=== PATIENT | male | born 1980 | race Caucasian/White ===

== ENCOUNTER 2021-04-15 23:17 | Emergency (ER) | payer BC, SELFPAY ==
--- NOTE | ~2021-04-15 | XR_ITS ---
EXAMINATION: XR chest 2V DATE: 04/15/2021 23:50 INDICATION: Chest pain, shortness of breath, COVID exposure TECHNIQUE: PA and lateral views of the chest are obtained. COMPARISON: None available FINDINGS: The lungs are free of acute opacities. There is no pleural effusion or pneumothorax. There appear to be large calcified right lower paratracheal and right hilar lymph nodes. A calcified nodule of the right upper lobe is consistent with old granulomatous disease. The heart size is normal. The visualized bones and soft tissues are unremarkable. IMPRESSION: 1. No acute cardiopulmonary abnormality. 2. Likely large calcified right lower paratracheal and right hilar lymph nodes consistent with granul omatous disease. Recommend comparison with any prior outside imaging and consider further evaluation with chest CT if unavailable. Reviewed, dictated and finalized at location A. IMPRESSION: 1. No acute cardiopulmonary abnormality. 2. Likely large calcified right lower paratracheal and right hilar lymph nodes consistent with granulomatous disease. Recommend comparison with any prior outs melonie imaging and consider further evaluation with chest CT if unavailable.
[2021-04-15 23:20] VITALS: BP 135/95; PULSE 87; RESP 16; TEMP 36.2; O2SAT 99
--- NOTE | 2021-04-15 23:24 | ECG_ITS ---
Measurements Intervals Tofte Rate: 83 P: 36 ME: 132 QRS: -2 QRSD: 85 T: 32 QT: 363 QTc: 428 Interpretive Statements SINUS RHYTHM NORMAL ECG Electronically Signed On 04-16-2021 6:20:02 CDT by Cabrera Sargent D.O.
[2021-04-15 23:41] LABS: Basophils Percent Auto 0.4 % (0.2-1.2); Eosinophils Percent Auto 0.8 % (0-4.4); Hematocrit 42.9 % (42.0-52.0); Immature Granulocyte Absolute 0.02 K/mm3 (0.00-0.031); Immature Granulocyte Percent A 0.4 % (0-0.5); Lymphocytes Absolute Auto 2.24 K/mm3 (0.9-3.2); Lymphocytes Percent Auto 45.3 % (18.3-44.2); Mean Corpuscular HGB Conc 32.6 g/dl (32-36); Mean Corpuscular Volume 91.9 fl (80-100); Mean Platelet Volume 9.1 fl (7.4-10.4); Monocytes Absolute Auto 0.6 K/mm3 (0.1-0.6); Monocytes Percent Auto 11.9 % (2.6-8.5); Neutrophils Percent Auto 41.2 % (45.5-73.1); Platelet Count Result 237 k/mm3 (150-375); Red Blood Count 4.67 M/mm3 (4.6-6.20); Red Cell Distribution Width 12.1 % (11.5-14.5)
[2021-04-15 23:45] LABS: Prothrombin Time 12.6 Seconds (11.1-14.7)
[2021-04-15 23:46] LABS: Partial Thromboplastin Time 30.3 SECONDS (22.3-36.8)
[2021-04-16 00:11] LABS: Anion Gap 13 mmol/L (8-16); Blood Urea Nitrogen 14 mg/dL (9-20); Calcium 9.1 mg/dL (8.4-10.2); Carbon Dioxide 25 mmol/L (22-30); Chloride 102 mmol/L (98-107); Estimated CRCL calculation 109 ml/min; Estimated Glomerular Filt Rate > 60; Glucose 110 mg/dL (65-110); Potassium 3.7 mmol/L (3.4-5.0); Sodium 140 mmol/L (137-145)
[2021-04-16 00:25] LABS: Troponin I < 0.012 ng/mL (0.000-0.034)
--- NOTE | 2021-04-16 01:00 | ED.CHESTPAIN ---
HPI - Chest Pain General Chief Complaint: Chest Pain Stated Complaint: chest pain, pressure, cough, SOB Time Seen by Provider: 04/16/21 00:59 History of Present Illness HPI narrative: pleuritic chest pain for the past couple of days. increasing in severity. Worse with coughing and deep breathing. Associated with mild JACKSON. No fever. He has known exposure to COVID-19. He has been vaccinated. Related Data Home Medications Medication Instructions Recorded Confirmed omeprazole 20 mg capsule,delayed 20 mg PO DAILY 10/21/20 release rizatriptan 10 mg tablet 10 mg PO ONCE 10/21/20 Allergies Allergy/AdvReac Type Severity Reaction Status Date / Time No Known Allergies Allergy Verified 10/21/20 14:50 Review of Systems Review of Systems: All systems reviewed & are unremarkable except as noted in HPI and below ENT: Denies sore throat Respiratory: Respiratory: Reports cough Gastrointestinal: Gastrointestinal: Denies abdominal pain Genitourinary: Genitourinary: Reports no additional male genitourinary complaints Musculoskeletal: Musculoskeletal: Reports myalgias Neurologic: Reports system reviewed and no additional complaints, except as documented [facility] Past Medical History Medical History Mild acid reflux Surgical History Surgical History History of appendectomy (~1986) History of vasectomy (~2018) Hx of LASIK (~2008) Social History Social History Smoking status: Never smoker Alcohol intake: current Substance use: never Exam Const: General: no acute distress and alert Orientation/consciousness: patient oriented x3 HENMT: Head: normal to inspection Neck: Neck: normal visual inspection and no lymphadenopathy Chest: Chest palpation & inspection: no tenderness Resp: Effort & Inspection: normal respiratory effort Auscultation: clear to auscultation bilaterally, crackles, no rhonchi and no wheezes Cardio: Jugular venous distension: no JVD Rate: regular rate Rhythm: regular rhythm Heart sounds: no murmurs GI: Inspection: non-distended GI Palp: Yes Soft to palpation and No Tenderness to palpation present (GI) Skin: General skin exam: normal color Neuro: General: patient oriented x3 and moves all extremities Speech: normal speech Extrem: General: no edema Psych: Appearance: well kempt Affect: normal affect Course Vital Signs Vital signs: Vital Signs Temperature 36.2 C L 04/15/21 23:20 Pulse Rate 87 04/15/21 23:20 Respiratory Rate 16 04/15/21 23:20 Blood Pressure 135/95 H 04/15/21 23:20 Pulse Oximetry 99 04/15/21 23:20 Temperature 36.2 C L 04/15/21 23:20 Pulse Rate 81 04/16/21 02:29 Respiratory Rate 20 04/16/21 02:29 Blood Pressure 130/88 04/16/21 02:29 Pulse Oximetry 98 04/16/21 02:29 MDM - Chest Pain MDM Narrative Medical decision making narrative: Likely post vaccination COVID infection. Labs and x-ray negative. VS stable. Medical Records Data Attestation: I reviewed the patient's medical records. Lab Data Attestation: I reviewed the patient's lab results. Result diagrams: 04/15/21 23:29 04/15/21 23:29 Labs: Lab Results 04/15/21 04/15/21 04/15/21 Range/Units 23:29 23:29 23:29 WBC 5.0 (4.5-10.0) K/mm3 RBC 4.67 (4.6-6.20) M/mm3 Hgb 14.0 (14.0-18.0) g/dL Hct 42.9 (42.0-52.0) % MCV 91.9 (80-100) fl MCH 30.0 (26-34) pg MCHC 32.6 (32-36) g/dl RDW 12.1 (11.5-14.5) % Plt Count 237 (150-375) k/mm3 MPV 9.1 (7.4-10.4) fl Immature Gran % (Auto) 0.4 (0-0.5) % Neut % (Auto) 41.2 L (45.5-73.1) % Lymph % (Auto) 45.3 H (18.3-44.2) % Faulkner % (Auto) 11.9 H (2.6-8.5) % Eos % (Auto) 0.8 (0-4.4) % Baso % (Auto) 0.4 (0.2-1.2) % Lymph # (Auto) 2.24 (0.9-3.2) K/mm3 M
[2021-04-16 02:29] VITALS: BP 130/88; PULSE 81; RESP 20; O2SAT 98
[2021-04-16 18:40] LABS: SARS-CoV-2 RNA PCR Positive
== END 2021-04-16 02:32 | disposition home or self-care (01) ==
PROVIDERS: Emergency Provider Emergency Medicine; PCP Internal Medicine
DX: U07.1 COVID-19 (principal); R07.89 Other chest pain; K21.9 Gastro-esophageal reflux disease without esophagitis; R91.8 Other nonspecific abnormal finding of lung field
CPT/HCPCS: 36415; 71046; 80048; 84484; 85025; 85610; 85730; 93005; 99284; C9803; U0003; U0005

== ENCOUNTER → 2022-06-29 07:56 | Outpatient (CLI) | payer BC, SELFPAY ==
--- NOTE | ~2022-06-29 | CT_ITS ---
EXAMINATION: CT chest abdomen pelvis w con DATE: 06/29/2022 08:31 INDICATION: Sarcoidosis TECHNIQUE: Transaxial computed tomographic images of the chest, abdomen, and pelvis were obtained aft er the administration of 100 cc of Omnipaque 350 intravenous contrast. The dose-length product (DLP) was 1353.67 mGy-cm. Automated exposure control and iterative reconstruction technique were employed. COMPARISON: Chest radiograph dated 04/15/2021 FINDINGS: CHEST CT: There are minimal airspace opacities of the right upper lobe. There are calcified nodules in the righ t upper lobe. There is a 5.9 x 4.4 cm calcified right paratracheal mass. No pleural effusion or pneum othorax. The heart size is normal. ABDOMEN/PELVIS CT: The liver is diffusely low in attenuation when compared with the spleen, consistent with hepatic stea tosis. Punctate calcifications in the liver and spleen likely represent healed granulomatous disease. The pancreas, gallbladder, and adrenal glands are normal. 2.4 cm cyst of the left kidney. The right kidney is unremarkable. No pathologically enlarged abdominal or pelvic lymph nodes are identified. Th ere is no free intraperitoneal gas or evidence of bowel obstruction. Colonic diverticulosis is presen t without evidence of diverticulitis. IMPRESSION: 1. Calcified right paratracheal mass such as sarcoidosis given the clinical history, or other granulo matous disease, or less likely calcified neoplasm. 2. Minimal airspace opacities of the right upper lobe, consistent with pneumonia. Reviewed, dictated and finalized at location A. IMPRESSION: 1. Calcified right paratracheal mass such as sarcoidosis given the clinical his tory, or other granulomatous disease, or less likely calcified neoplasm. 2. Minimal airspace opacities of the right upper lobe, consistent with pneumoni a.
== END ==
PROVIDERS: PCP Internal Medicine; Visit Provider Internal Medicine
DX: D86.9 Sarcoidosis, unspecified (principal); N28.1 Cyst of kidney, acquired; K57.30 Diverticulosis of large intestine without perforation or abscess without bleeding
CPT/HCPCS: 71260; 74177; Q9967

== ENCOUNTER 2022-07-21 15:56 | Outpatient (CLI) | payer BC, SELFPAY ==
[2022-07-24 13:56] LABS: NIL 0.02 IU/mL; Quantiferon TB Plus, 1T NEGATIVE (NEGATIVE); TB1-NIL 0.01 IU/mL
== END 2022-07-21 15:57 | disposition home or self-care (01) ==
LOC: ANHLAB 15:57
PROVIDERS: PCP Internal Medicine; Visit Provider Internal Medicine Pulmonary Disease
DX: I89.8 Other specified noninfective disorders of lymphatic vessels and lymph nodes (principal)
CPT/HCPCS: 36415; 86480; 86698

== ENCOUNTER 2023-09-03 06:33 | Outpatient (CLI) | payer OTHER, SELFPAY ==
--- NOTE | ~2023-09-03 | CT_ITS ---
CT Scan of the Chest without Contrast: Clinical Indication: Calcified lymph nodes Technique: Contiguous sections were acquired throughout the chest without intravenous contrast. Dose reduction technique was used on this scan by utilizing automated exposure control and iterative recon struction technique. The dose-length product (DLP) was 397.27 mGy-cm. COMPARISON: 06/29/2022 Findings: Stable large, densely calcified tiesha mass along the right paratracheal stripe is present. No other t horacic lymphadenopathy seen. No axillary lymphadenopathy. The mediastinal soft tissues appear normal . There is no evidence of pleural or pericardial effusion. The lungs are clear, aside from calcified right upper lobe granulomas. Images through the upper abdomen reveal calcified splenic granulomas. Probable diffuse fatty infiltra tion of liver. Impression: Evidence of prior granulomatous disease, with dominant large densely calcified tiesha mass along right paratracheal stripe. Findings are stable from prior exam. Reviewed, dictated and finalized at [facility]. R ENGINEER Impression: Evidence of prior granulomatous disease, with dominant large densely calcified tiesha mass along right paratracheal stripe. Findings are stable from prior exam .
== END 2023-09-03 06:34 | disposition home or self-care (01) ==
LOC: ANHIMG 06:35
PROVIDERS: PCP Internal Medicine; Visit Provider Internal Medicine Pulmonary Disease
DX: I89.8 Other specified noninfective disorders of lymphatic vessels and lymph nodes (principal)
CPT/HCPCS: 71250

== ENCOUNTER 2023-12-10 00:29 | Day surgery (SDC) | payer OTHER, SELFPAY ==
[2023-12-02 10:10] VITALS: BMI 25.7
--- NOTE | 2023-12-08 10:08 | SUR.PREOP ---
Patient called regarding upcoming procedure. Voicemail left regarding appointment times.
[2023-12-10 09:09] VITALS: BP 112/77; PULSE 76; RESP 16; TEMP 35.6; O2SAT 100; BMI 26.2
[2023-12-10] MEDS: LACTATED RINGERS 1,000 ML 150 ML IV CONT (09:26)
--- NOTE | 2023-12-10 09:52 | PM.HPGS ---
History of Present Illness History of Present Illness Consent: Risks, benefits, and alternatives have been discussed and questions answered. Patient agrees to proceed with procedure. Chief complaint: GERD,Neoplasm screening,chest pain Narrative: Pillo Connell is a 43 year old male with gerd controlled with omeprazole taking for years but had episode few weeks ago of chest pain, now resolved. Had egd about 7 years ago, never had colonoscopy Review of Systems Review of Systems: All systems reviewed & are unremarkable except as noted in HPI and below PMFSH Past Medical History Medical History (Updated 12/10/23 @ 09:53 by Michael Schrader MD) Anxiety Colon cancer screening GERD (gastroesophageal reflux disease) Mild acid reflux RUQ pain Surgical History Surgical History History of appendectomy (~1986) History of vasectomy (~2018) Hx of LASIK (~2008) Social History Social History Smoking status: Never smoker Alcohol intake: current Drinks per week: 6 Substance use: never Living arrangements: with family Spiritual care concerns: No Meds Home Medications and Allergies Home Medications Medication Instructions Recorded Confirmed Type omeprazole 20 mg capsule,delayed 20 mg PO DAILY 10/21/20 12/10/23 History release rizatriptan 10 mg tablet 10 mg PO .prn 07/21/22 12/10/23 History Allergies Allergy/AdvReac Type Severity Reaction Status Date / Time No Known Allergies Allergy Verified 12/10/23 09:16 Vital Signs Vital Signs - 24 hr 12/10/23 09:09 Temperature 96.1 F L Pulse Rate 76 Respiratory Rate 16 Blood Pressure 112/77 Pulse Oximetry 100 Oxygen Delivery Room Air Exam Const: General: comfortable and no acute distress HENMT: Face/Nose/Sinus: Normal nares present Eyes: General: appearance normal, both eyes and all related structures Neck: Neck: no JVD Resp: Auscultation: clear to auscultation bilaterally Cardio: Rate: regular rate Rhythm: regular rhythm GI: Inspection: non-distended GI Palp: Yes Soft to palpation Skin: General skin exam: normal color Neuro: General: gait normal Speech: normal speech Extrem: General: normal to inspection Psych: Mental Status: mental status grossly normal Assessment and Plan Assessment and plan (1) GERD (gastroesophageal reflux disease): Code(s): K21.9 - Gastro-esophageal reflux disease without esophagitis Status: Acute Assessment and Plan: egd with bx (2) Colon cancer screening: Code(s): Z12.11 - Encounter for screening for malignant neoplasm of colon Status: Acute Assessment and Plan: colonoscopy
--- NOTE | 2023-12-10 10:05 | SUR.OPER ---
EGD end 1003 COLONOSCOPY START 1008
[2023-12-10 10:20] VITALS: BP 100/65; PULSE 58; RESP 14; O2SAT 98
[2023-12-10 10:30] VITALS: BP 104/71; PULSE 69; RESP 20; O2SAT 100
[2023-12-10 10:40] VITALS: BP 115/55; PULSE 66; RESP 17; O2SAT 98
== END 2023-12-10 10:44 | disposition home or self-care (01) ==
PROVIDERS: PCP Internal Medicine; Visit Provider Internal Medicine Gastroenterology
PROC: 0DJ08ZZ Inspection of Upper Intestinal Tract, Via Natural or Artificial Opening Endoscopic (ICD-10-PCS; CPT 43235; principal; 2023-12-10 10:30)
DX: Z12.11 Encounter for screening for malignant neoplasm of colon (principal); K57.30 Diverticulosis of large intestine without perforation or abscess without bleeding; K63.5 Polyp of colon; K64.8 Other hemorrhoids; K44.9 Diaphragmatic hernia without obstruction or gangrene; K21.9 Gastro-esophageal reflux disease without esophagitis
CPT/HCPCS: 45385; 43239; 88305; J2704; J7120

== ENCOUNTER 2024-10-26 06:42 | Outpatient (CLI) | payer OTHER, SELFPAY ==
--- NOTE | ~2024-10-26 | CT_ITS ---
CT Scan of the Chest without Contrast: Clinical Indication: Localized swelling Technique: Contiguous sections were acquired throughout the chest without intravenous contrast. Dose reduction technique was used on this scan by utilizing automated exposure control and iterative recon struction technique. The dose-length product (DLP) was 329.72 mGy-cm. COMPARISON: 09/03/2023 Findings: Stable very large densely calcified right paratracheal lymph node. No other mediastinal mass or lymph adenopathy seen. No aortic aneurysm. No axillary lymphadenopathy. There is no evidence of pleural or pericardial effusion. Stable calcified right upper lobe granulomas. Images through the upper abdomen reveal diffuse hepatic steatosis. Impression: No acute abnormality. Stable evidence of prior granulomatous disease, including large densely calcified right paratracheal lymph node. Reviewed, dictated and finalized at [facility]. ING CHECKER Impression: No acute abnormality. Stable evidence of prior granulomatous disease, including large densely calcifi ed right paratracheal lymph node.
--- OUTSIDE RECORDS SUMMARY | 2024-10-26 06:45 | XMS_ITS | Clinical Summary ---
Author Organization [facility] [address] [facility] [place] [address] Care Team Providers Care Director Supplier Quality Name Role Phone Jarrett Soni MD Primary Care Provider Dm Coates MD Unavailable Dm Comer MD Unavailable [phone] Allergies No known active allergies Medications omeprazole (PriLOSEC) 20 mg capsule Take 1 capsule (20 mg total) by mouth daily 05/08/2022 Active rizatriptan (MAXALT) 10 mg tablet 01/08/2023 Active Active Problems Problem Noted Date Diagnosed Date Screen for colon cancer 07/30/2024 Overview (07/30/2024): reports had Colonoscopy this year 2023 at [facility], and told to have repeat in 5 years, requesting records Assessment & Plan (07/30/2024 10:02 PM FIELD CROP FARMWORKER): reports had Colonoscopy this year 2023 at [facility], and told to have repeat in 5 years, requesting records Vitamin D deficiency 07/30/2024 Assessment & Plan (07/30/2024 10:06 PM FIELD CROP FARMWORKER): - new diagnosis - noted on 07/13 lab test - start Vitamin D3 5000 international units daily available OTC Lab Results Component Value Date 25HYDROVITD 21 (L) 07/14/2024 Pre-diabetes 07/30/2024 Assessment & Plan (07/30/2024 10:07 PM FIELD CROP FARMWORKER): - new diagnosis - noted on lab work 07/13 with A1c of 5.8 - will need repeat measurement for confirmation in future visit - minimize sources of excess sugar containing drinks or sweet foods to start with Gastroesophageal reflux disease without esophagi tis 07/07/2024 Assessment & Plan (07/07/2024 10:11 AM CDT): - chronic condition, stable status - has been on PPI for 10+ years - Omeprazole 20 mg daily in mornings only - used to take TUMS before that - has not been on another medication - continue current management Anxiety 07/07/2024 Assessment & Plan (07/30/2024 10:00 PM FIELD CR[employer] FARMWORKER): - chronic, stable - reports onset was End of 2022, had anxiety for first time ever, without any reason , thinks anxiety is stemming from any discomfort coming through his chest, panic and thinks he may be having a heart attack - he is sure his lungs and heart is fine now as he has been evaluated for it - he was prescribed some antidepressants that he did not take - he saw a therapist x2 within a couple of weeks around xmas time, - Has not had bouts of it since then but If starting to have, fight through it Preventative health care 07/07/2024 Assessment & Plan (07/30/2024 10:06 PM FIELD CROP FARMWORKER): - New or chronic worsening conditions: vitamin D deficiency, pre-diabetes - Mental health: no significant psychiatric/mental health conditions affecting her day to day functioning - Dental health: Recommend regular dental care and cleaning. Discussed importance of regular tooth brushing, flossing, and dental visits. - Nutrition: Recommend moderation in sodium/caffeine intake, saturated fat and cholesterol, caloric balance, sufficient intake of fresh fruits, vegetables - Exercise: Recommend to exercise at least 30 minutes moderate to vigorous exercise most days of the week. 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 Encounters Date Type Department Care Team Description 09/18/2024 Telephone [facility] at [address] [place] [phone] Jarrett Soni MD 08/28/2024 7:15 PM FIELD [employer] FARMWORKER Office Visit [facility] at [address] [phone] Elva Cuellar NP Epididymitis, right (Primary Dx) 08/28/2024 7:10 PM FIELD [employer] FARMWORKER - 08/28/2024 11:59 PM FIELD CR[employer] FARMWORKER Hospital Encounter [address] [address] Epididymitis, right Discharge Disposition: Discharge to home or self care 07/31/2024 Telephone [facility] at [address] [place] [phone] Jarrett Soni MD Medical Records Request from Last 3 Months Immunizations Name Administration Dates Next Due Influenza, Unspecified 07/07/2024(Deferr ed: Patient Refused),07/07/2024(Deferred: Patient Refused) Pfizer SARS-CoV-2 Monovalent Vaccination (12+ Yrs) PURPLE 11/23/2020,11/22/2020,11/03/2020,2020 Tdap 08/29/2015 Surgical History Surgery Date Site/Laterality Comments APPENDECTOMY VASECTOMY LASIK Medical History Medical History Date Comments Migraine GERD (gastroesophageal reflux disease) Sarcoidosis Family History Medical History Relation Name Comments Hypertension Father Thyroid disease Father Hypertension Mother Kidney disease Mother Relation Name Status Comments Father Alive Mother Alive Social History Tobacco Use Types Packs/Day Years Used Date Smoking Tobacco: Never Smokeless Tobacco: Never Tobacco Cessation:Counseling Given: Yes AUDIT-C Answer Date Recorded Q1: How often do you have a drink containing alcohol? 4 or more times a week 07/07/2024 Q2: How many drinks containi ng alcohol do you have on a typical day when you are drinking? 1 or 2 Q3: How often do you have si x or more drinks on one occasion? Never 07/07/2024 PHQ-2 Answer Date Recorded PHQ-2 Total Score (If total score is 3 or more points, staff should administer the PHQ-9) 0 07/07/2024 Sex and Gender Information Value Date Recorded Sex Assigned at Not on file Legal Sex Male 12:22 PM CDT Gender Identity Not on file Sexual Orientation Not on file Obstetrics History Last Filed Vital Signs Vital Sign Reading Time Taken Comments Blood Pressure 116/68 08/28/2024 7:06 PM FIELD [employer] FARMWORKER Pulse 87 08/28/2024 7:06 PM FIELD [employer] FARMWORKER Temperature 36.7 C (98.1 F) 08/28/2024 7:06 PM FIELD CR[employer] FARMWORKER Respiratory Rate 16 08/28/2024 7:06 PM FIELD CROP FARMWORKER Oxygen Saturation 97% 08/28/2024 7:06 PM FIELD CROP FARMWORKER Inhaled Oxygen Concentration - - Weight 98.9 kg (218 lb) 08/28/2024 7:06 PM FIELD CR[employer] FARMWORKER Height 188 cm (6' 2.02 ) 07/07/2024 9:23 AM CDT Body Mass Index 27.98 07/07/2024 9:23 AM CDT Plan of Treatment Health Maintenance Due Date Last Done Comments Covid-19 Vaccine ( season) 2024 11/23/2020, 11/22/2020, 11/03/2020, Additional history exists Influenza Vaccine (#1) 2024 Depression Screening 07/07/2025 07/07/2024, 05/26/20 24 Regular Well Visit/Exam 18-64 07/07/2025 07/07/2024 DTaP/Tdap/Td Vaccine (2 - Td or Tdap) 08/29/2025 08/29/2015 Colon Cancer Screening-Colonoscopy 12/09/2033 12/10/2023 Hepatitis B Screening Completed 07/14/2024 Hepatitis C Screening Completed 07/14/2024 HPV Vaccines Aged Out No longer eligi ble based on patient's age to complete this topic Pneumococcal vaccine <65 Aged Out No longer eligible based on patient's age to complete this topic Procedures Procedure Name Priority Date/Time Associated Diagnosis Comments POCT URINALYSIS DIPSTICK Routine 08/28/2024 7:17 PM FIELD CROP FARMWORKER Epididymitis, right URINE CULTURE Routine 08/28/2024 7:10 PM FIELD [employer] FARMWORKER Epididymitis, right HEPATITIS C ANTIBODY Routine 07/14/2024 10:00 AM CDT Encounter for hepatitis C screening test for low risk patient COLONOSCOPY Routine 12/10/2023 from Last 3 Months or Most Recently Relevant to Health Maintenance Results * POCT urinalysis dipstick (08/28/2024 7:17 PM FIELD CROP FARMWORKER) Color, Urine, POC Yellow Clarity, ur, POC Clear Clear Glucose, ur, POC Negative Negative MG/DL Bilirubin, ur, POC Negative Negative, Small, Moderate, Large Ketones, ur, POC Negative Negative Specific [place], POC 1.020 1.003 - 1.030 Blood, ur, POC Negative Negative pH, ur, POC 5.5 5.0 - 8.0 Protein, ur, POC Negative Negative Urobilinogen, urine, POC 0.2 0.2 - 1.0 mg/dL Nitrite, ur, POC Negative Negative Leukocytes, ur, POC Negative Negative Lot Number [id number] Urine 08/28/2024 7:17 PM FIELD CROP FARMWORKER Elva Cuellar NP POINT OF CARE TEST ORDERABLES Final Result * Urine culture Urine, clean voided (08/28/2024 7:10 PM FIELD CROP FARMWORKER) Report Final Report: Less than 100,000 colonies/mL (clinically insignificant growth based on current clinical standards) Comment:Testing performed by : [facility], [address] [place]., [address] Organism (CLINICALLY INSIGNIFICANT GROWTH [facility] Urine, clean voided 08/28/2024 7:10 PM FIELD CROP FARMWORKER 08/29/2024 12:22 AM FIELD CROP FARMWORKER Narrative LUDWIG - 08/30/2024 3:57 AM FIELD CROP FARMWORKER Testing performed by [facility] ([phone]) Elva Cuellar NP LAB MICROBIOLOGY - GENERAL ORD ERABLES Final Result Performing Organization Address [facility] Co de Phone Number LUDWIG CARROLL [address] [place], [place] [id number] * Hepatitis C antibody Blood (07/14/2024 10:00 AM CDT) Hep C Ab Nonreactive Nonreactive Comment: Interpretive Data Nonreactive: Antibodies to HCV not detected. Does NOT exclude the possibility of recent exposure to HCV. Equivocal: Equivocal for HCV antibodies. Supplemental molecular testing will be automatically performed to determine infection status in accordance with current CDC screening recommendations. Reactive: Positive for HCV antibodies. This may represent current or past HCV infection. Supplemental molecular testing will be automatically performed to determine current infection status in accordance with current CDC screening recommendations. Interpretive data was last revised on 2019. Blood 07/14/2024 10:0 0 AM CDT 07/14/2024 4:03 PM CDT us Jarrett Soni MD LAB MICROBIOLOGY - GENE RAL ORDERABLES Final Result Performing Organization Address City/[facility]/ZIP Co de Phone Number LUDWIG CARROLL [address] [employer] [place], [place] [phone] * Colonoscopy (12/10/2023) Anatomical Region Laterality Modality Other us Generic External Data Provider ENDOSCOPY PROCEDU RES Final Result from Last 3 Months or Most Recently Relevant to Health Maintenance Insurance [employer] ACCESS CHOICE Member Subscriber Plan / Payer (Ef fective for All Dates) Name:[phone] Relation to Subscriber:Self Name:Hemanth Connellothy Hafsa Payer ID:[id number] (NAIC) Type:[employer] Address: [address] [place] [address] CIG[employer] OPEN ACCESS [facility] OPEN ACCESS Care Teams Director Supplier Quality Relationship Specialty Start Date End Date Jarrett Soni MD [address] [place] [address] [address] [place] [address] PCP - General Family Medicine 05/26/24 Dm Coates MD [id number] [place] [address] Referring Physician Thoracic Surgery 07/07/24 Dm Comer MD [address] [facility] [address] [place], [place] [id number] Consulting Physician Pulmonary Disease 07/30/24
--- OUTSIDE RECORDS SUMMARY | 2024-10-26 06:45 | XMS_ITS | Data Portability ---
Author Organization [place] [facility] [employer], Main Office Address [address] [place] [address] Assessment No assessment recorded. Plan of Treatment Reminders Order Date Submit Date Provider Last Modified By Organization Details Last Modified Time Details Appointments None recorded. Lab lipid panel, serum 2022 023 [email or web address] [facility], [address] [place], [address], 11:59:43 PSA, serum or plasma 2022 023 [email or web address] [facility], [address] [place], [address], 11:59:44 magnesium, serum or plasma 2022 023 [email or web address] [facility], [address] [place], [address], 11:59:43 vitamin B12, serum 2022 023 [id number] [facility], [address] [place], [address], 11:59:43 CBC w/ auto diff 2022 023 [id number] [facility], [address] [place], [address], 3 11:59:43 CMP, serum or plasma 2022 023 [id number] [facility], [address] [place], [address], 3 11:59:43 TYLER (angiotensi n-convertin g enzyme), serum [id number] [facility], [address] [place], [address], 11:59:42 TSH, serum or plasma [id number] [facility], [address] [place], [address], 11:59:44 T4, free, serum [address] [facility], [address] [place], [address], 11:59:44 Referral None recorded. Procedures None recorded. Surgeries None recorded. Imaging None recorded. Medication Orders escitalopra m 10 mg tablet 2022 023 [id number], [address], [place], [place], [id number], 16:30:18 Patient TargetsNo targets recorded. Patient Instructions Encounter Date Encounter Id Patient Instructions Last Modified By Organization Details Last Modified Time 06/29/2023 [id number] Follow-up sarcoidosis -GERD -is vertebral bowel syndrome all clinically stable. Will check blood work consisting of CBC, CMP, lipid, thyroid, PSA, magnesium, PSA and Tyler level. Continue on current Rx. Will set up for further evaluation of the sarcoid. Instructed to take the Imodium one tablet in the morning see if this helps if no attempt to try some Viberzi.Standard immunizations of RSV, COVID, influenza and shingles as recommended Portions of the record may have been created with voice recognition software. Occasional wrong-word or s ound-a-like substitutions may have occurred due to the inherent limitations of voice recognition software. Read the chart carefully and recognize, using context, where substitutions have occurred. [email or web address] Not available 06/29/2023 15:17:37 08/06/2023 [id number] Anxiety disorder -sarcoidosis. Will start on some escitalopram 10 mg once daily. Instructed the patient's Let us know in about a week to 10 days status see there is any improvement. Check back in four weeks Portions of the record may have been created with voice recognition software. Occasional wrong-word or s ound-a-like substitutions may have occurred due to the inherent limitations of voice recognition software. Read the chart carefully and recognize, using context, where substitutions have occurred. Keep Appt: Wed 01:30 PM Jerzy willett Not available 08/06/2023 16:30:13 Reason for Referral None Reported. Results Created Date Observation Date Name Description Value Unit Range Abnormal Flag Note LastModifiedBy Organization Detail LastModifiedTime 07/02/2007/03/2022 PSA, TOTAL PSA, total 0.85 NG/mL < or = 4.00 normal The total PSA value from this assay syste m is stand ardiz ed again st the WHO stand ian. The test resul t will be appro ximat luis 20% lower when dimitrios red to the equim olar- stand ardiz ed total PSA (Kerr man Coult er). Dimitrios rison of seria l PSA resul ts shoul d be inter prete d with this fact in mind. This test was perfo rmed using the QA on Requeste ns chemi lumin escen t metho d. Value s obtai gregg from diffe rent assay metho ds canno t be used inter joseph eably . PSA level s, regar dless of value , shoul d not be inter prete d as absol [place] evide nce of the prese nce or absen ce of disea se. Not Available [employer] [facility] [address] [place], [address], 07/03/2022 05:26:52 07/02/2007/03/2022 VITAM IN B12 vitamin B12 530 pg/mL 200-11 00 normal Not Available [employer] [facility] [address] [place], [address], 07/03/2022 05:26:51 07/02/20 22 07/03/2022 CBC (INCL UDES DIFF/ PLT) white blood cell count 5.8 thous and/u L 3.8-10 .8 normal Not Available [address], [address], 07/03/2022 05:26:50 07/02/20 22 07/03/2022 CBC (INCL UDES DIFF/ PLT) MCH 30.3 pg 27.0-3 3.0 normal Not Available [address], [address], 07/03/2022 05:26:50 07/02/20 22 07/03/2022 CBC (INCL UDES DIFF/ PLT) red blood cell count 4.72 toya on/uL 4.20-5 .80 normal Not Available [address], [address], 07/03/2022 05:26:50 07/02/20 22 07/03/2022 CBC (INCL UDES DIFF/ PLT) hemoglobin 14.3 g/dL 13.2-1 7.1 normal Not Available [address], [address], 07/03/2022 05:26:50 07/02/20 22 07/03/2022 CBC (INCL UDES DIFF/ PLT) hematocrit 43.2 % 38.5-5 0.0 normal Not Available [address], [address], 07/03/2022 05:26:50 07/02/20 22 07/03/2022 CBC (INCL UDES DIFF/ PLT) MCV 91.5 fL 80.0-1 00.0 normal Not Available [address], [address], 07/03/2022 05:26:50 07/02/20 22 07/03/2022 CBC (INCL UDES DIFF/ PLT) MCHC 33.1 g/dL 32.0-3 6.0 normal Not Available [address] [place], [address], 07/03/2022 05:26:50 07/02/20 22 07/03/2022 CBC (INCL UDES DIFF/ PLT) RDW 11.9 % 11.0-1 5.0 normal Not Available [address], [address], 07/03/2022 05:26:50 07/02/2007/03/2022 CBC (INCL UDES DIFF/ PLT) platelet count 260 thous and/u L 140-40 0 normal Not Available [address], [address], 07/03/2022 05:26:50 07/02/2007/03/2022 CBC (INCL UDES DIFF/ PLT) MPV 9.7 fL 7.5-12 .5 normal Not Available [address], [address], 07/03/2022 05:26:50 07/02/20 22 07/03/2022 CBC (INCL UDES DIFF/ PLT) absolute neutrophils 3439 cells /uL 1500-7 800 normal Not Available [address], [address], 07/03/2022 05:26:50 07/02/20 22 07/03/2022 CBC (INCL UDES DIFF/ PLT) absolute lymphocytes 1815 cells /uL 850-39 00 normal Not Available [address], [address], 07/03/2022 05:26:50 07/02/2007/03/2022 CBC (INCL UDES DIFF/ PLT) absolute monocytes 423 cells /uL 200-95 0 normal Not Available [address], [address], 07/03/2022 05:26:50 07/02/20 22 07/03/2022 CBC (INCL UDES DIFF/ PLT) absolute eosinophils 93 cells /uL 15-500 normal Not Available [address], [address], 07/03/2022 05:26:50 07/02/20 22 07/03/2022 CBC (INCL UDES DIFF/ PLT) absolute basophils 29 cells /uL 0-200 normal Not Available [address], [address], 07/03/2022 05:26:50 07/02/20 22 07/03/2022 CBC (INCL UDES DIFF/ PLT) neutrophils 59.3 % normal Not Available [address], [address], 07/03/2022 05:26:50 07/02/20 22 07/03/2022 CBC (INCL UDES DIFF/ PLT) lymphocytes 31.3 % normal Not Available [address], [address], 07/03/2022 05:26:50 07/02/20 22 07/03/2022 CBC (INCL UDES DIFF/ PLT) monocytes 7.3 % normal Not Available [address], [address], 07/03/2022 05:26:50 07/02/20 22 07/03/2022 CBC (INCL UDES DIFF/ PLT) eosinophils 1.6 % normal Not Available [address], [address], 07/03/2022 05:26:50 07/02/20 22 07/03/2022 CBC (INCL UDES DIFF/ PLT) basophils 0.5 % normal Not Available [address], [address], 07/03/2022 05:26:50 07/02/20 22 07/03/2022 COMPR EHENS PACO METAB OLIC PANEL urea nitrogen (BUN) 21 mg/dL 7-25 normal Not Available [address] [place], [address], 07/03/2022 05:26:50 07/02/20 22 07/03/2022 COMPR EHENS PACO METAB OLIC PANEL glucose 98 mg/dL 65-99 normal Fasti ng refer ence inter joel Not Available [address] [address] [place], [address], 07/03/2022 05:26:50 07/02/20 22 07/03/2022 COMPR EHENS PACO METAB OLIC PANEL creatinine 0.93 mg/dL 0.60-1 .29 normal Not Available [address] [place], [address], 07/03/2022 05:26:50 07/02/20 22 07/03/2022 COMPR EHENS PACO METAB OLIC PANEL eGFR 104 mL/mi n/1.7 3m2 > or = 60 normal The eGFR is based on the CKD-E PI 2020 equat ion. To calcu late the new eGFR from a previ ous Creat inine or Cysta tin C resul t, go to https ://alejandro hawkins/deon celeste s/ kdoqi /gfr% 5Fcal culat or Not Available [address] [place], [address], 07/03/2022 05:26:50 07/02/20 22 07/03/2022 COMPR EHENS PACO METAB OLIC PANEL BUN/creatini ne ratio not applic able (calc ) 6-22 Not Available [address] [place], [address], 07/03/2022 05:26:50 07/02/20 22 07/03/2022 COMPR EHENS PACO METAB OLIC PANEL sodium 139 mmol/ L 135-14 6 normal Not Available [address] [place], [address], 07/03/2022 05:26:50 07/02/20 22 07/03/2022 COMPR EHENS PACO METAB OLIC PANEL potassium 4.4 mmol/ L 3.5-5. 3 normal Not Available [address], [address], 07/03/2022 05:26:50 07/02/20 22 07/03/2022 COMPR EHENS PACO METAB OLIC PANEL chloride 105 mmol/ L 98-110 normal Not Available [address], [address], 07/03/2022 05:26:50 07/02/20 22 07/03/2022 COMPR EHENS PACO METAB OLIC PANEL carbon dioxide 29 mmol/ L 20-32 normal Not Available [address], [address], 07/03/2022 05:26:50 07/02/20 22 07/03/2022 COMPR EHENS PACO METAB OLIC PANEL calcium 9.5 mg/dL 8.6-10 .3 normal Not Available [address], [address], 07/03/2022 05:26:50 07/02/20 22 07/03/2022 COMPR EHENS PACO METAB OLIC PANEL protein, total 7.6 g/dL 6.1-8. 1 normal Not Available [address], [address], 07/03/2022 05:26:50 07/02/20 22 07/03/2022 COMPR EHENS PACO METAB OLIC PANEL albumin 4.4 g/dL 3.6-5. 1 normal Not Available [address], [address], 07/03/2022 05:26:50 07/02/20 22 07/03/2022 COMPR EHENS PACO METAB OLIC PANEL globulin 3.2 g/dL_ (calc ) 1.9-3. 7 normal Not Available [address], [address], 07/03/2022 05:26:50 07/02/20 22 07/03/2022 COMPR EHENS PACO METAB OLIC PANEL albumin/glob ulin ratio 1.4 (calc ) 1.0-2. 5 normal Not Available [address], [address], 07/03/2022 05:26:50 07/02/20 22 07/03/2022 COMPR EHENS PACO METAB OLIC PANEL bilirubin, total 0.4 mg/dL 0.2-1. 2 normal Not Available [address], [address], 07/03/2022 05:26:50 07/02/20 22 07/03/2022 COMPR EHENS PACO METAB OLIC PANEL alkaline phosphatase 76 U/L 36-130 normal Not Available [address] [address] [place], [address], 07/03/2022 05:26:50 07/02/20 22 07/03/2022 COMPR EHENS PACO METAB OLIC PANEL AST 27 U/L 10-40 normal Not Available [address], [address], 07/03/2022 05:26:50 07/02/20 22 07/03/2022 COMPR EHENS PACO METAB OLIC PANEL ALT 40 U/L 9-46 normal Not Available [address], [address], 07/03/2022 05:26:50 07/02/20 22 07/03/2022 MAGNE SIUM magnesium 2.1 mg/dL 1.5-2. 5 normal Not Available [address], [address], 07/03/2022 05:26:49 07/02/20 22 07/03/2022 LIPID PANEL , STAND IAN cholesterol, total 148 mg/dL <200 normal Not Available [address], [address], 07/03/2022 05:26:48 07/02/20 22 07/03/2022 LIPID PANEL , STAND IAN HDL cholesterol 50 mg/dL > or = 40 normal Not Available [address], [address], 07/03/2022 05:26:48 07/02/2007/03/2022 LIPID PANEL , STAND IAN triglyceride s 92 mg/dL <150 normal Not Available [address], [address], 07/03/2022 05:26:48 07/02/2007/03/2022 LIPID PANEL , STAND IAN LDL-choleste rol 80 mg/dL _(asi c) normal Refer ence range : <100 Kena able range <100 mg/dL for prima ry preve ntion ; <70 mg/dL for patie nts with CHD or diabe tic patie nts with > or = 2 CHD risk facto rs. LDL-C is now calcu lated using the Yolis n-Hop kins calcu deisi n, which is a valid ated novel mabelo debra bassett r accur acy than the Fried delia equat ion in the estim ation of LDL-C . oYlis mackay SS et al. KIMO. 2013; 310(1 9): 2061- 2068 (http ://ed ucati on.Qu estDi Bandgap Engineerings. com/f aq/FA Q164) Not Available [address], [address], 07/03/2022 05:26:48 07/02/20 22 07/03/2022 LIPID PANEL , STAND IAN chol/HDLC ratio 3.0 (calc ) <5.0 normal Not Available [address], [place], [address], 07/03/2022 05:26:48 07/02/20 22 07/03/2022 LIPID PANEL , STAND IAN non HDL cholesterol 98 mg/dL _(sai c) <130 normal For patie nts with diabe stephanie plus 1 major ASCVD risk facto r, treat ing to a non-H DL-C goal of <100 mg/dL (LDL- C of <70 mg/dL ) is consi dered a thera peuti c optio n. Not Available [facility] [place] [address], [place], [address], 07/03/2022 05:26:48 04/16/20 21 04/15/2021 XR, chest , 2 view No observ ation record ed. [email or web address].[id number] [place] [address], [address], 11/18/2022 14:55:23 04/16/20 21 04/15/2021 elect rocar diogr am No observ ation record ed. [id number].[id number] [place] [address], [address], 11/18/2022 14:55:23 04/22/20 21 04/15/2021 XR, chest , 1 view No observ ation record ed. [id number] [place] [address] (Cardiology & Emg) [address] [place] [address], [address], 11/18/2022 14:55:23 04/22/20 21 04/15/2021 elect rocar diogr am No observ ation record ed. [id number].[id number] [place] [address], [address], 11/18/2022 14:55:23 06/22/20 22 XR, chest , 2 view [facility] [address] [facility], [place] [address] Patien t Name: ANU CONNELL Access ion #: [id number] Sex: M : 1979 4 Locati on: RA2 Attend ing Physic elias: DWAYNE JULES CE Orderi ng Physic elias: DWAYNE JULES CE Exam Date: 8:04 AM Exam Name: XR CHEST 2V Admitt ing Diagno sis(es ): RADIOL OGY REPORT - FINAL EXAM: XR CHEST 2V HISTOR Y: cough COMPAR SARAH: None. TECHNI QUE: Two views of the chest were perfor med. FINDIN GS: Large medias tinal lymph nodes are presen t measur ing 5.2 cm, 3.1, and 1.7 cm, right paratr acheal region . The appear ance of these lymph nodes is nonspe cific, possib ly hyperd ense. There are a few tiny calcif ied densit ies overly ing the right upper lobe measur ing 3-4 mm. No pneumo thorax pleura l effusi ons, or pulmon anca edema. The heart is not enlarg ed. Page 1 of 2 [facility] Name: ANU CONNELL Access ion #: [id number] Sex: M : 1979 4 Exam Date: 8:04 AM Exam Name: XR CHEST 2V Admitt ing Diagno sis(es ): IMPRES MISSY: 1. Medias tinal lymph nodes, small nodule s projec t over the right upper lobe. Differ ential diagno stic possib ilitie s includ e residu als of granul omatou s infect ion, sarcoi dosis, amyloi dosis, treate d lympho ma, inhala tional lung diseas e, also appear ance of metast asis. 2. Recomm end CT of the chest with contra st. Create d and electr onical ly signed by: Waqas fisher MD Signed Date: 8:33 AM (CT) Dictat ed by: Waqas fisher MD DD: 8:33 AM (CT) DT: 10/3/2 022 8:33 AM (CT) Page 2 of 2 [id number] [facility] (Imaging) [address], [place], [address], 11/18/2022 14:55:23 06/29/[address], chest + abdom en + pelvi s, w/ contr ast No observ ation record ed. [id number] [facility] [address], [place], [address], 11/18/2022 14:55:23 09/03/20 23 09/03/2023 CT, chest , w/o contr ast No observ ation record ed. [address], [place], [address], 09/03/2023 09:05:07 Result Notes None recorded. Problems Name Problem SNOMED Code Status Onset Date Resolution Date Notes Provider Name and Address Organization Details Recorded Time Gastroesophag eal reflux disease 012260912 Active Not Available [facility] 3 14:50:54 Finding of body mass index 069443785 Active 2021 Not Available [employer] 3 14:50:54 Sarcoidosis 16244578 Active 2021 Not Available [facility] 3 14:50:54 Migraine 72343683 Active Not Available [facility] 3 14:50:54 Vertigo 809817543 Active Not Available [employer] 3 14:50:54 Chronic cough 31289440 Active 2021 Not Available [employer] 3 14:50:54 Irritable bowel syndrome with diarrhea 101196931 Active 2022 Ishmael Jules MD [address], [facility] [address], [place], [address] , [employer] [facility] [employer] [facility] 3 15:13:53 Disorder of prostate 88098817 Active 2022 Ishmael Jules MD [address], [facility] [address], [place], [address] , [facility] [employer] [facility] 15:16:52 Fatigue 75502566 Active 2022 Ishmael Jules MD [address], [place], [address] , [facility] 15:17:25 Anxiety disorder 897441960 Active 2022 Ishmael Jules MD [address], [place], [address] , [facility] [employer] [facility] 3 16:25:20 Strain of abdominal muscle 376132939 Active 2022 Ishmael Jules MD [address], [place], [address] , [facility] [employer] [facility] 15:38:11 Problem Notes None recorded. Procedures Surgical History None recorded. Imaging Results Imaging Date Name Status LastModified by Organization Details LastModified Time 04/15/2021 XR, chest, 2 view completed MIGRATION. [address] [place] [address] [place] [address], [address], 11/18/2022 14:55:23 04/15/2021 electrocardiogram completed MIG[facility]ATION. [address] [place] [address] [address] [facility], [place], [address], 11/18/2022 14:55:23 04/15/2021 XR, chest, 1 view completed M[facility]. [address] [place] [address] (Cardiology & Emg) [address] [place] [address] [place] [address], [address], 11/18/2022 14:55:23 04/15/2021 electrocardiogram completed M[facility]. [address] [place] [address] [place] [address], [address], 11/18/2022 14:55:23 06/29/2022 CT, chest + abdomen + pelvis, w/ contrast completed MIGRATION.[address] [place] [address] Imaging [address], [place], [address], 11/18/2022 14:55:23 06/22/2022 XR, chest, 2 view completed MIGRATION. [id number] [facility] (Imaging) [address], [place], [address], 11/18/2022 14:55:23 09/03/2023 CT, chest, w/o contrast completed [address] [facility] [address], [place], [address], 09/03/2023 09:05:07 Procedure Notes None recorded. Medical Equipment None Reported. Medications Name Sig Start Date Stop Date Status Note LastModified by Organization Details LastModified Time cyclobenzap rine 10 mg tablet Take 1 tablet 3 times a day by oral route. 2022 active Not Available Not Available Not Avai lable rizatriptan 10 mg tablet take one tablet by mouth at onset of headache. May repeat 1 time in 2 hours active Not Available Not Available No t Available Zithromax Z-Steve 250 mg tablet TAKE 2 TABLETS (500 MG) BY ORAL ROUTE ONCE DAILY FOR 1 DAY THEN 1 TABLET (250 MG) BY ORAL ROUTE ONCE DAILY FOR 4 DAYS 05/09 completed Not Available Not Available Not Available omeprazole 20 mg capsule,del ayed release TAKE 1 CAPSULE DAILY 2023 active Not Available Not Available Not Avai lable albuterol sulfate HFA 90 mcg/actuati on aerosol inhaler Inhale 2 puffs every 4 hours by inhalatio n route. 2021 active Not Available Not Available Not Avai lable amoxicillin 875 mg-potassiu m clavulanate 125 mg tablet TAKE 1 TABLET BY MOUTH TWICE DAILY FOR 7 DAYS 08/06 completed Not Available Not Available Not Available escitalopra m 10 mg tablet Take 1 tablet every day by oral route. active Not Available Not Available No t Available Qvar RediHaler 40 mcg/actuati on HFA breath activated aerosol INHALE 2 PUFFS BY MOUTH EVERY 12 HOURS active Not Available Not Available No t Available Vitals Date Recorded Body mass index (BMI) Body height Oxygen saturation Oxygen saturation in Arterial blood by Pulse oximetry Oxygen saturation Oxygen saturation in Arterial blood by Pulse oximetry Heart rate Heart rate Body temperature Body temperature Body weight Body weight Systolic blood pressure Diastolic blood pressure Systolic blood pressure Diastolic blood pressure Provider Name and Address Organization Details Last Updated DateTime 3 27.5 kg/m2 187.96 cm 98 % 98 % 96 % 96 % 86 /min 84 /min 97.1 [degF] 95.8 [degF] 30608.7 7 g 47015.8 1 g 126 mm[Hg] 68 mm[Hg] 120 mm[Hg] 76 mm[Hg] Not Available [facility] 3 14:48:10 Date Recorded Body height Body mass index (BMI) Body weight Body temperature Heart rate Oxygen saturation Oxygen saturation in Arterial blood by Pulse oximetry Systolic blood pressure Diastolic blood pressure Provider Name and Address Organization Details Last Updated DateTime 3 187.96 cm 27.7 kg/m2 11358.9 5 g 97.5 [degF] 79 /min 98 % 98 % 120 mm[Hg] 80 mm[Hg] Nicolle Redmond CMA [facility] 3 14:38:16 Date Recorded Body height Body mass index (BMI) Body weight Heart rate Body temperature Oxygen saturation Oxygen saturation in Arterial blood by Pulse oximetry Systolic blood pressure Diastolic blood pressure Provider Name and Address Organization Details Last Updated DateTime 3 187.96 cm 27.1 kg/m2 90335.9 9 g 88 /min 97 [degF] 99 % 99 % 122 mm[Hg] 80 mm[Hg] Elif Nagel [facility] 3 16:18:30 Social History Question Answer Notes LastModified by Organizat ion Details LastModified Time Do You Have An Advance Directive? No [id number] Information not available 11/18/2022 Do You Wear A Helmet When Biking? Yes [id number] Information not available 11/18/2022 In The 14 Days Before Symptom Onset, Have You Had Close Contact With A Laboratory-confirm ed COVID-19 While That Case Was Ill? No [id number] Information not available 11/18/2022 In The 14 Days Before Symptom Onset, Have You Had Close Contact With A Person Who Is Under Investigation For COVID-19 While That Person Was Ill? No [id number] Information not available 11/18/2022 What Type Of Diet Are You Following? REGULAR [id number] Information not available 11/18/2022 Do You Have A Medical Power Of [employer] Maker? No [id number] Information not available 11/18/2022 Do You Use Your Seat Belt Or Car Seat Routinely? Yes [id number] 026 Information not available 11/18/2022 Do You Feel Stressed (tense, Restless, Nervous, Or Anxious, Or Unable To Sleep At Night)? [id number] 026 Information not available 11/18/2022 Have You Recently Traveled Abroad? No [id number] 026 Information not available 11/18/2022 Do You Have Any Dietary Restrictions? No [id number] 026 Information not available 11/18/2022 Sex: Male Functional Status None recorded. Mental Status None recorded. Family History Nothing Reported Notes:Mother living 63 good health Father living 65 with hx of CA of thyroid, essential hypertension and some ethanol abuse One sister living and in good health Medical History Condition Response HEADACHES/MIGRAINES Y GERD/NAUSEA Y Immunizations Vaccine Type Date Status Note Provider Nam e and Address Organization Details Recorded Time COVID-19 Non-US Vaccine, Product Unknown 11/22/2020 completed Not Available [facility] 3 14:55:05 COVID-19 Non-US Vaccine, Product Unknown 11/03/2020 completed Not Available [facility] 3 14:55:05 Past Encounters Encounter ID Performer Location Encounter Start Date Encounter Closed Date Diagnosis/Indication Diagnosis SNOMED-CT Code Diagnosis ICD10 Code Diagnosis Note [id number] [facility] [place] [address] 05/09/2021 00:00:00 05/09/2021 10:25:10 [id number] [facility] Internal Med [address] [place] [address] 06/19/2022 00:00:00 06/19/2022 16:17:05 [id number] Ishmael Jules MD [facility] Internal Med [address] [place] [address] 06/29/2023 14:30:46 06/29/2023 15:22:58 Sarcoidosis 77591073 D86.9 Gastroesop hageal reflux disease 672550793 K21.9 Irritable bowel syndrome with diarrhea 029780114 K58.0 Screening for cardiovascular system disease 124072236 Z13.6 Disorder of prostate 302 99323 N42.9 Fatigue 99306475 R53.83 [id number] Ishmael Jules MD [facility] Julio Cesar reddy [address] [facility] [place] [address] 08/06/2023 16:11:37 08/06/2023 16:34:32 Sarcoidosis [id number] D86.9 Anxiety disorder [id number] 06 F41.9 Health Concerns Section Related Observation LastModified by Organization Detai ls LastModified Time None Recorded Concern Status LastModified by Organization Details LastModified Time None Recorded Advance Directives Directive N: Payers Encounter Date Sequence Insurance Name Policy Number Policy Huntley Covered Member ID Huntley Member ID Guarantor Name 06/29/2023 1 [facility] [id number] Pillo Connell [id number] Pillo Connell 08/06/2023 1 [facility] [id number] Pillo Connell [id number] Pillo Connell Notes Date Note Type Note Provider Name and Address Organization Details Recorded Time 3 text/htm l Patient Name: Pillo ConnellDate Of Service: Wednesday ( 06.29.2023 ): 1980 Age: 43 Chief Complaint: Addressed in HPI Problems or conditions discussed in the HPI were the only ones reviewed during the encounter.Only social and family history addressed in the HPI were reviewed during this encounter. Attendant(s): NoneConstitutional and Systemic Symptoms:none Medication Reconciliation: from medication list. AnnotationsCT scan of the chest abdomen pelvis demonstrates a 5.9 x 4.4 cm calcified right paratracheal mass. No other significant adenopathy is noted in the chest or abdomen. There is some changes in the liver consistent with hepatic steatosis. History of Present Illness #1. Sarcoidosis: Hx of sarcoidosis. Involvement: lung There has been no interval deterioration in exercise tolerance or problems with shortness of breath. No constitutional symptoms. Denies any history of headache, nausea, vomiting or other gastrointestinal symptoms. #2. Hx of esophageal reflux currently stable. Hx of Complications: none The severity, duration and intensity of symptoms have improved. Frequency: most meals Treatment consists medications taken on a regular basis. Current therapy includes Prilosec. There has been no nausea. No change in he frequency or intensity of symptoms. Has had no melena. Has had no hematemesis. Discuss the possibility of trying to reduce the frequency of the use of any PPI inhibitors or H2 antagonist to see if symptoms can be controlled with last intensive therapy #3. Hx of irritable bowel syndrome manifested predominately by diarrhea. No interval complaints of any change in bowel habits, pain, weight loss or other constitutional symptoms. There has been no hematemesis or hematochezia.Medication List Reviewed and Reconciled 3Prilosec 20 MG (CAPSULE, DELAYED REL PELLETS - ORAL) One Daily In AmMaxalt 10 MG (TABLET - ORAL) One As DirectedVaccination and [id number] Covid PfizerSurgical HistoryLasik Surgery, AppendectomyPreventative Testing Confirmed by Our Njpjvlq3107/02/2022 ALBUMIN 4.4 G/DL N1 PSA 0.85 NG/ML N012/30/2017 UPPER ENDOSCOPYSocial HistoryDoes not smokeDrinks sociallyWorks as a financial advisorFamily HistoryMother living 63 good healthFather living 65 with hx of CA of thyroid, essential hypertension and some ethanol abuseOne sister living and in good health Ishmael Jules MD [address] [address], [place], [address], [facility] [employer] 06/29/2023 15:20:57 3 text/htm l Patient Name: Pillo Vidales Of Service: Wednesday ( 08.06.2023 ): 1980 Age: 43 There has been approximately a 2 lb weight gain since 06/19/2022. This represents approximately a 1.0% change in weight. Weight change attributable to lifestyle changes. Vital Signs:Blood Pressure: Sitting Rt. Arm 122/80Pulse: Sitting 88 /min and RegularRespiratory Rate: 12Height 74 in or 1.9 mWeight 211 lb or 95.7 kgBMI 27.1Temperature: 97 F or 36.1 CPulse Oximetry: 99 % at rest on no oxygen Chief Complaint: Addressed in HPI Problems or conditions discussed in the HPI were the only ones reviewed during the encounter.Only social and family history addressed in the HPI were reviewed during this encounter. Attendant(s): NoneConstitutional and Systemic Symptoms:none Medication Reconciliation: from medication list. AnnotationsCT scan of the chest abdomen pelvis demonstrates a 5.9 x 4.4 cm calcified right paratracheal mass. No other significant adenopathy is noted in the chest or abdomen. There is some changes in the liver consistent with hepatic steatosis. History of Present Illness #1. Generalized feeling anxiety to the point of sound like he does experience some hyperventilation attacks. No associated syncope or presyncope. Feels like he is about ready to have a fever but has no feeling of high temperature diaphoresis or any other signs or symptoms suggestive of any type of infectious etiology. Previous history of COVID. Also has a history of sarcoidosis. Does not appear that this is causing any significant problem but cannot rule out the possibility that this may be playing some role.: #2. Sarcoidosis clinically biopsy proven. No other interval complaints of any systemic symptomatology.:Medication List Reviewed and Reconciled 3Prilosec 20 MG (CAPSULE, DELAYED REL PELLETS - ORAL) One Daily In AmMaxalt 10 MG (TABLET - ORAL) One As DirectedVaccination and [id number] Covid PfizerSurgical HistoryLasik Surgery, AppendectomyPreventative Testing Confirmed by Our Mlnadtq6407/02/2022 ALBUMIN 4.4 G/DL N1 PSA 0.85 NG/ML N012/30/2017 UPPER ENDOSCOPYSocial HistoryDoes not smokeDrinks sociallyWorks as a financial advisorFamily HistoryMother living 63 good healthFather living 65 with hx of CA of thyroid, essential hypertension and some ethanol abuseOne sister living and in good health Ishmael Jules MD [address] [facility], [facility] [address], [place], [address], [facility] [employer] 08/06/2023 16:30:28
--- OUTSIDE RECORDS SUMMARY | 2024-10-26 06:45 | XMS_ITS | Referral Summary ---
Author Organization [facility] [address] Address [address] [place] [address] Care Team Providers Care Flatbed Company Driver Name Role Phone Jarrett Soni MD Primary Care Provider Dm Coates MD Unavailable Dm Comer MD Unavailable [phone] Encounters Date Type Department Care Team Description 09/18/[address] [facility] Primary Care at [address] [phone] Jarrett Soni MD 08/28/2024 7:10 PM NC MANAGER - 08/28/2024 11:59 PM NC MANAGER Hospital Encounter [address] [address] Epididymitis, right Discharge Disposition: Discharge to home or self care 08/28/2024 7:15 PM NC MANAGER Office Visit [facility] at [address] [address] Elva Cuellar NP Epididymitis, right (Primary Dx) 07/31/2024 Telephone [facility] Primary Care at [address] [address] Jarrett Soni MD Medical Records Request from Last 3 Months Allergies No known active allergies Medications omeprazole (PriLOSEC) 20 mg capsule Take 1 capsule (20 mg total) by mouth daily 05/08/2022 Active rizatriptan (MAXALT) 10 mg tablet 01/08/2023 Active Active Problems Problem Noted Date Diagnosed Date Screen for colon cancer 07/30/2024 Overview (07/30/2024): reports had Colonoscopy this year 2023 at [facility], and told to have repeat in 5 years, requesting records Assessment & Plan (07/30/2024 10:02 PM NC MANAGER): reports had Colonoscopy this year 2023 at [facility], and told to have repeat in 5 years, requesting records Vitamin D deficiency 07/30/2024 Assessment & Plan (07/30/2024 10:06 PM NC MANAGER): - new diagnosis - noted on 07/13 lab test - start Vitamin D3 5000 international units daily available OTC Lab Results Component Value Date 25HYDROVITD 21 (L) 07/14/2024 Pre-diabetes 07/30/2024 Assessment & Plan (07/30/2024 10:07 PM NC MANAGER): - new diagnosis - noted on lab [...] 07/07/2024 Assessment & Plan (07/30/2024 10:00 PM NC MANAGER): - chronic, stable - reports onset was [...] 07/07/2024 Assessment & Plan (07/30/2024 10:06 PM NC MANAGER): - New or chronic worsening conditions: vitamin [...] 07/07/2024 Assessment & Plan (07/30/2024 9:58 PM NC MANAGER): - new diagnosis - small, non-tender, reducible - discussed warning signs and what to monitor - no acute or urgent intervention necessary at this time 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 Immunizations Name Administration Dates Next Due Influenza, Unspecified 07/07/2024(Deferr ed: Patient Refused),07/07/2024(Deferred: Patient Refused) Pfizer SARS-CoV-2 Monovalent Vaccination (12+ Yrs) PURPLE 11/23/2020,11/22/2020,11/03/2020,2020 Tdap 08/29/2015 Social History Tobacco Use Types Packs/Day Years [...] on file Sexual Orientation Not on file Last Filed Vital Signs Vital Sign Reading Time Taken Comments Blood Pressure 116/68 08/28/2024 7:06 PM NC MANAGER Pulse 87 08/28/2024 7:06 PM NC MANAGER Temperature 36.7 C (98.1 F) 08/28/2024 7:06 PM NC MANAGER Respiratory Rate 16 08/28/2024 7:06 PM NC MANAGER Oxygen Saturation 97% 08/28/2024 7:06 PM NC MANAGER Inhaled Oxygen Concentration - - Weight 98.9 kg (218 lb) 08/28/2024 7:06 PM NC MANAGER Height 188 cm (6' 2.02 ) 07/07/2024 9:23 AM CDT Body Mass Index 27.98 07/07/2024 9:23 AM CDT Plan of Treatment Not on file Procedures Procedure Name Priority Date/Time Associated Diagnosis Comments POCT URINALYSIS DIPSTICK Routine 08/28/2024 7:17 PM NC MANAGER Epididymitis, right URINE CULTURE Routine 08/28/2024 7:10 PM NC MANAGER Epididymitis, right HEPATITIS C ANTIBODY Routine 07/14/2024 10:00 AM CDT Encounter for hepatitis C screening test for low risk patient COLONOSCOPY Routine 12/10/2023 from Last 3 Months or Most Recently Relevant to Health Maintenance Results * POCT urinalysis dipstick (08/28/2024 7:17 PM NC MANAGER) [facility] [address] Color, Urine, POC Yellow Clarity, ur, POC Clear Clear Glucose, ur, POC Negative Negative MG/DL Bilirubin, ur, POC Negative Negative, Small, Moderate, Large Ketones, ur, POC Negative Negative Specific [place], POC 1.020 1.003 - 1.030 Blood, ur, POC Negative Negative pH, ur, POC 5.5 5.0 - 8.0 Protein, ur, POC Negative Negative Urobilinogen, urine, POC 0.2 0.2 - 1.0 mg/dL Nitrite, ur, POC Negative Negative Leukocytes, ur, POC Negative Negative Lot Number [id number] Urine 08/28/2024 7:17 PM NC MANAGER us Elva Cuellar NP POINT OF CARE TEST ORDERABLES Final Result * Urine culture Urine, clean voided (08/28/2024 7:10 PM NC MANAGER) [facility] [address] Report Final Report: Less than 100,000 colonies/mL (clinically insignificant growth based on current clinical standards) Comment:Testing performed by : [facility], [address] [place]., [address] Organism (CLINICALLY INSIGNIFICANT GROWTH LUDWIG Urine, clean voided 08/28/2024 7:10 PM NC MANAGER 08/29/2024 12:22 AM NC MANAGER Narrative LUDWIG - 08/30/2024 3:57 AM NC MANAGER Testing performed by [facility] ([phone]) us Elva Cuellar NP LAB MICROBIOLOGY - GENERAL ORD ERABLES Final Result LUDWIG CARROLL [address] Department [place] [address] * Hepatitis C antibody Blood (07/14/2024 10:00 AM CDT) [facility] [address] Hep C Ab Nonreactive Nonreactive Comment: Interpretive [...] MICROBIOLOGY - GENE RAL ORDERABLES Final Result LUDWIG [address] Department [place] [address] * Colonoscopy (12/10/2023) Anatomical Region Laterality Modality Other us Generic External Data Provider ENDOSCOPY PROCEDU RES Final Result from Last 3 Months or Most Recently Relevant to Health Maintenance Insurance [employer] CHOICE Member Subscriber Plan / Payer (Ef fective for All Dates) Name:[phone] Relation to Subscriber:Self Name:Pillo Connell Payer ID:[id number] (NAIC) Type: [employer] Address: [facility] [address] [place] [address] [employer] OPEN ACCESS ANTHEM ACCESS CHOICE CIG[employer] OPEN ACCESS Care Teams Flatbed Company Driver Relationship Specialty Start Date End Date Jarrett Soni MD [address] [facility] [address]NE A [address] [address] PCP - General Family Medicine 05/26/24 Dm Coates MD [id number] [place] [address] Referring Physician Thoracic Surgery 07/07/24 Dm Comer MD [address] [facility] [address] [place] [address] Consulting Physician Pulmonary Disease 07/30/24
--- OUTSIDE RECORDS SUMMARY | 2024-10-26 06:45 | XMS_ITS | Clinical Summary ---
Author Organization [facility] Address [address] [place] [address] Phone Care Team Providers Care Lithograph Press Feeder Name Role Phone Ishmael Jules MD Primary Care Provider [phone] Allergies No known active allergies Medications omeprazole (PriLOSEC) 20 mg Capsule, Delayed Release(E.C.) Take 20 mg by mouth daily. Active Social History Tobacco Use Types Packs/Day Years Used Date Smoking Tobacco: Never Tobacco Cessation:Counseling Given: Not Answered Feeling Safe Answer Date Recorded Are you in a relationship wi th someone who hurts you emotionally and/or physically? No 02/10/2023 Sex and Gender Information Value Date Recorded Sex Assigned at Not on file Legal Sex Male 9:32 AM CDT Gender Identity Not on file Sexual Orientation Not on file Last Filed Vital Signs Vital Sign Reading Time Taken Comments Blood Pressure 118/73 02/10/2023 2:00 PM CDT Pulse 74 02/10/2023 2:00 PM CDT Temperature 36.7 C (98 F) 02/10/2023 2:00 PM CDT Respiratory Rate 18 02/10/2023 2:00 PM CDT Oxygen Saturation 99% 02/10/2023 2:00 PM CDT Inhaled Oxygen Concentration - - Weight 92.1 kg (203 lb) 02/10/2023 9:36 AM CDT Height 188 cm (6' 2 ) 02/10/2023 9:36 AM CDT Body Mass Index 26.06 02/10/2023 9:36 AM CDT Plan of Treatment Health Maintenance Due Date Last Done Comments DTAP/TDAP/TD VACCINES (1 - Tdap) 1997 HEPATITIS B VACCINES (1 of 3 - 19+ 3-dose series) 1997 COLORECTAL SCREENING 2023 Colorectal Cancer Screening 2023 FIT-DNA Q 3 years 2023 FIT/FOBT Q 1 year 2023 Flex Sig/CT Colonography Q 5 years 2023 INFLUENZA VACCINE (#1) 2024 HPV VACCINES Aged Out No longer eligi ble based on patient's age to complete this topic PNEUMOCOCCAL VACCINE 0-64 YEARS Aged Out No longer eligible based on patient's age to complete this topic Insurance [facility] OPEN ACCESS HMO Advance Directives For more information, please contact: [phone] Documents on File Type Date Recorded Patient Wood Heel Attacher Expl anation Advance Directive Living Will 02/10/2023 10:36 AM Care Teams Lithograph Press Feeder Relationship Specialty Start Date End Date Ishmael Jules MD [address] [facility] [address] [place] [address] PCP - General Internal Medicine 02/10/23
== END 2024-10-26 06:43 | disposition home or self-care (01) ==
PROVIDERS: PCP Internal Medicine; Visit Provider Physician Assistant
DX: R22.2 Localized swelling, mass and lump, trunk (principal)
CPT/HCPCS: 71250

== ENCOUNTER 2025-07-24 14:02 | Outpatient (CLI) | payer OTHER, SELFPAY ==
--- NOTE | ~2025-07-24 | US_ITS ---
US scrotum doppler INDICATION: Right testicular pain TECHNIQUE: Testicular sonogram utilizing grayscale and color Doppler FINDINGS: The testes are normal in size and appearance. No focal lesions are seen. The right testes measures 5.1 x 2.7 x 3.3 cm centimeters, and the left testis measures 4.5 x 2.6 x 3.3 cm cm. There is normal vascular flow to both testes. There are bilateral epididymal cysts, largest on the left measuring 6 mm. There is a small left hydrocele. There is a right varicocele. There is a benign appearing extratesticular calcification measuring 5 mm. IMPRESSION: 1. Right varicocele. 2: Small left hydrocele. Reviewed, dictated and finalized at location O. IPLE DRILL OPERATOR
== END 2025-07-24 14:03 | disposition home or self-care (01) ==
LOC: MICIMG 14:03
PROVIDERS: PCP Family Medicine; Visit Provider Family Medicine
DX: N50.82 Scrotal pain (principal)
CPT/HCPCS: 76870; 93976